=== PATIENT | male | born 1985 ===

== ENCOUNTER 2024-07-10 07:12 | Emergency (ER) | payer MEDICAID, OTHER ==
[~2024-07-10] VITALS: Ht 170.2 cm; Wt 90.9 kg
[2024-07-10 07:29] VITALS: PULSE 128; RESP 22; O2SAT 97
--- NOTE | 2024-07-10 07:39 | ED.PDOC ---
Psychiatric HPI Comments 39M BIBA w/ prior Hx of alcoholism which may be associated to the c/c of ETOH. EMS report that the pt's on scene informed them that the pt has been on a binge drinking for the pat 5 days and only has been drinking beer and Bacardi. Pt states that his last drink before coming to the ER was 30 minutes ago. PMHx of HTN, Anxiety and Stomach Ulcers. SHx of Spine Fusion in the C-6, C-7. Social Hx of quit tobacco use, less than 1 month ago, heavy alcohol use, but denies substance use. Denies chills, fever, N/V/D, SOB, CP or other associated symptom's, modifiers, or recent injuries or sick contact at this time. 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, Medications, Allergies Information Source: Patient, Emergency Med Personnel Mode of Arrival: EMS Severity of Pain: Moderate Severity of Mental Status: None Severity of Symptoms: Moderate Timing: Days Duration: Since onset, Days Prehospital treatment: None Presents with: Anxiety, Alcohol Intoxication Ingestion: ETOH Circumstance: None Current substance abuse: ETOH History of: Anxiety, Alcoholism Location: None Location of pain or injury: None Associated signs and symptoms: Anxiety, Intoxication Past Medical History PAST MEDICAL HISTORY: Anxiety, HTN Past Medical History (Other): Alcoholism and Stomach Ulcers Surgical History (Other): Spine Fusion C-6, C-7 Family History Family History: Reviewed,noncontributory to illness, Unknown Social History Smoker: Quit Less Than 1 Year Alcohol: Heavy Drugs: Denies Drug Use Lives In: Home EENTM: denies: blurred vision, double vision, ear bleeding, ear discharge, ear drainage, ear pain, ear ringing, eye pain, eye redness, hearing loss, mouth pain, mouth swelling, nasal discharge, nose bleeding, nose congestion, nose pain, photophobia, tearing, throat pain, throat swelling, voice changes, others Respiratory: denies: cough, hemoptysis, orthopnea, SOB at rest, shortness of breath, SOB with excertion, stridor, wheezing, others Cardiovascular: denies: chest pain, dizzy spells, diaphoresis, Dyspnea on exertion, edema, irregular heart beat, left arm pain, lightheadedness, palpitations, PND, syncope, others Gastrointestinal: denies: abdomen distended, abdominal pain, blood streaked bowels, constipated, diarrhea, dysphagia, difficulty swallowing, hematemesis, melena, nausea, poor appetite, poor fluid intake, rectal bleeding, rectal pain, vomiting, others Genitourinary: denies: burning, dysuria, flank pain, frequency, hematuria, incontinence, penile discharge, penile sore, pain, testicle pain, testicle s welling, urgency, others Neurological: denies: dizziness, fainting, headache, left sided numbness, left sided weakness, numbness, paresthesia, pre-existing deficit, right sided numbness, right sided weakness, seizure, speech problems, tingling, tremors, weakness, others Musculoskeletal: denies: back pain, gout, joint pain, joint swelling, muscle pain, muscle stiffness, neck pain, others Integumetry: denies: bruises, change in color, change in hair/nails, dryness, laceration, lesions, lumps, rash, wounds, others Allergic/Immunocompromised: denies: Difficulty Healing, Frequent Infections, Hives, Itching, others Hematologic/Lymphatic: denies: anemia, blood clots, easy bleeding, easy bruising, swollen glands, others Endocrine: denies: excessive hunger, excessive sweating, excessive thirst, excessive urination, flushing, intolerance to cold, intolerance to heat, unexplained weight gain, unexplained weight loss, others Psychiatric: reports: others (ETOH); denies: anxiety, bipolar disorder, depression, hopeless, panic disorder, schizophrenia, sleepless, suicidal All Other Systems: Reviewed and Negative Physical Exam General Appearance: Moderate Distress, Obese, Other (Very restless) HEENT: Normal ENT Inspection, PERRL/EOMI, Pharynx Normal, TMs Normal Neck: Full Range of Motion, Non-Tender, Normal, Normal Inspection Respiratory: Chest Non-Tender, Lungs Clear, No Accessory Muscle Use, No Respiratory Distress, Normal Breath Sounds Cardiovascular: No Edema, No JVD, No Murmur, No Gallop, Normal Peripheral Pulses, Regular Rate/Rhythm Breast Exam: Deferred Gastrointestinal: Epigastric, No Organomegaly, No Pulsatile Mass, Normal Bowel Sounds, Soft, Tenderness Genitalia: Deferred Pelvic: Deferred Rectal: Deferred Extremities: No calf tenderness, Normal capillary refill, Normal inspection, Normal range of motion, Non-tender, No pedal edema Musculoskeletal : Apperance: Normal Neurologic: Alert, scout leaser II-XII nml as Tested, Depressed Affect, No Motor Deficits, No Sensory Deficits, Other (Restless) Cerebellar Function: NOT DONE Reflexes: Normal Skin: Dry, Normal Color, Warm Peripheral Pulses: 1+ carotid (R), 1+ carotid (L) Lymphatic: No Adenopathy Was a procedure done? Was a procedure done?: No Psych Differential Dx Psych. Differential Dx: Anxiety OD Differential Dx: Alcohol Abuse, Anxiety, Depression, Drug Overdose, Accidental Suicidal Differential Dx: Alcohol Abuse, Anxiety, Depression, Substance Abuse Intoxication Differential Dx: Alcohol Withdraw Syndrome, Delerium Tremens, Dehydration, Depression, Electrolyte Imbalance, Encephalopathy, Intoxication, Substance Abuse Disorder, Thiamine Deficiency X-Ray, Labs, Meds, VS Vital Signs Date Time Temp Pulse Resp B/P (MAP) Pulse Ox O2 Delivery O2 Flow Rate FiO2 07/10/24 09:30 98.5 125 20 146/83 (104) 96 98.5 07/10/24 07:29 128 22 97 Room Air* 0 21 07/10/24 07:29 99.1 128 22 150/96 (114) 98 99.1 07/10/24 07:20 97.7 10 16 143/83 (103) 97 Lab Test 07/10/24 08:20 07/10/24 07:46 Range/Units Stool for White Cells Pending White Blood Count 8.7 4.4-10.8 10^3/uL Red Blood Count 4.29 L 4.5-5.90 10^6/uL Hemoglobin 8.9 L 13.5-17.5 g/dL Hematocrit 28.6 L 41.0-53.0 % Mean Corpuscular Volume 66.7 L 80.0-100.0 fL Mean Corpuscular Hemoglobin 20.7 L 28.0-32.0 pg Mean Corpuscular Hemoglobin Concent 31.1 L 32.0-36.0 g/dL Red Cell Distribution Width 18.3 H 11.8-14.3 % Platelet Count 319 140-450 10^3/uL Mean Platelet Volume 6.0 L 6.9-10.8 fL Neutrophils (%) (Auto) 77.4 37.0-80.0 % Lymphocytes (%) (Auto) 16.9 10.0-50.0 % Monocytes (%) (Auto) 5.0 0.0-12.0 % Eosinophils (%) (Auto) 0.2 0.0-7.0 % Basophils (%) (Auto) 0.5 0.0-2.0 % Neutrophils # (Auto) 6.8 1.6-8.6 10 ^3/uL Lymphocytes # (Auto) 1.5 0.4-5.4 10 ^3/uL Monocytes # (Auto) 0.4 0-1.3 10 ^3/uL Eosinophils # (Auto) 0 0-0.8 10 ^3/uL Basophils # (Auto) 0 0-0.2 10 ^3/uL Nucleated Red Blood Cells 0.1 % Sodium Level 139 136-145 mmol/L Potassium Level 3.5 3.5-5.1 mmol/L Chloride Level 102 98-107 mmol/L Carbon Dioxide Level 19 L 20-31 mmol/L Anion Gap 18 H 5-15 Blood Urea Nitrogen 6 L 9-23 mg/dL Creatinine 0.93 0.700-1.30 mg/dL Glomerular Filtration Rate Calc 108 >90 mL/min BUN/Creatinine Ratio 6.5 L 10.0-20.0 Serum Glucose 138 H 74-106 mg/dL Calcium Level 10.1 8.7-10.4 mg/dL Magnesium Level 2.0 1.6-2.6 mg/dL Total Bilirubin 0.5 0.2-1.0 mg/dL Aspartate Amino Transferase (AST) 61 H 13-40 U/L Alanine Aminotransferase (ALT) 66 H 7-40 U/L Alkaline Phosphatase 94 46-116 U/L Total Protein 8.0 5.7-8.2 g/dL Albumin 5.1 H 3.2-4.8 g/dL Lipase 50 12-53 U/L Current Medications Medications (Trade) Dose Ordered Sig/Josephine Route Start Time Stop Time Status Last Admin Ondansetron HCl (Zofran) 4 mg ONCE ONCE IV 07/10/24 07:30 07/10/24 07:36 DC 07/10/24 07:46 Sodium Chloride 1,000 ml @ 1,000 mls/hr Q1H ONCE IVB 07/10/24 07:30 07/10/24 08:29 DC 07/10/24 07:46 Al Hydrox/Mg Hydrox/Simethicone (Maalox Plus) 30 ml ONCE ONCE PO 07/10/24 07:30 07/10/24 07:36 DC 07/10/24 07:46 Belladonna Alkaloids/ Phenobarbital ( Elixir) 5 ml ONCE ONCE PO 07/10/24 07:30 07/10/24 07:36 DC 07/10/24 07:46 Lorazepam (Ativan Inj) 2 mg ONCE ONCE IV 07/10/24 07:30 07/10/24 07:36 DC 07/10/24 07:46 Pantoprazole Sodium (Protonix Tablet) 40 mg ONCE ONCE PO 07/10/24 07:30 07/10/24 07:36 DC 07/10/24 07:46 Folic Acid 1 mg/ Magnesium Sulfate 8 meq/ Multivitamins 10 ml/Thiamine HCl 100 mg/Sodium Chloride 1,013.2 ml @ 126.247 mls/hr DAILY@1800 INJ 07/10/24 08:15 07/10/24 09:31 X-Ray, Labs, Meds, VS Comment Course in the emergency department eventful patient came in after a binge of alcohol he drank was Bacardi Chest x-ray is normal EKG pending CBC 8700 with 77% neutrophils H&H 8.9 and 28 with microcytosis CMP normal Lipase 50 Urine pending UDS pending Magnesium 2.0 CO2 19 Blood sugar 138 Patient did understand it was not smart to leave at this time he is under treatment but he adamantly requested to leave AMA Time of 1ST Reevaluation: 08:00 Reevaluation 1ST: Unchanged Time of 2ND Reevaluation: 10:45 Reevaluation 2ND: Improved Consultation: PCP, Psychiatry, Other (You need to go to a detoxification center) Patient Education/Counseling: Diagnosis, Treatment, Prognosis, Need For Follow Up Family Education/Counseling: Diagnosis, Treatment, Prognosis, Need For Follow Up, No Family Present Departure 1 Departure Time of Disposition: 10:46 Impression: Primary Impression: Alcohol abuse Additional Impressions: Alcohol withdrawal syndrome Qualified Codes: F10.939 - Alcohol use, unspecified with withdrawal, unspecified Microcytic anemia Disposition: 07 LEFT AGAINST MEDICAL ADVICE Condition: Fair Additional Instructions: Patient decided to leave AMA did not want to wait any longer though he was being worked up and hydrated and medicated You should not be driving at this time call someone for help Critical Care Note Critical Care Time?: No Stability Stability form required: No Heart Score Heart Score: Heart Score Response (Comments) Value History Slightly Suspicious 0 EKG N/A 0 Age <45 0 Risk Factors 1 or 2 risk factors 1 Troponin N/A 0 Total 1 I personally scribed for REYMUNDO MURPHY MD ([email or web address]) on 07/10/24 at 07:39. Electronically submitted by Chucky Hollis ([email or web address]). REYMUNDO MURPHY MD Jul 10, 2024 07:39
[2024-07-10] MEDS: SODIUM CHLORIDE 0.9% 1,000 ML IVB ONE (07:46)
[2024-07-10] MEDS: DONNATAL 5ml ORAL Elix (BELLADONNA ALK-PHENOBARB) PO ONE (07:46)
[2024-07-10] MEDS: MAALOX PLUS or MAALOX 30 ML PO ONE (07:46)
[2024-07-10] MEDS: ONDANSETRON HCL 4 MG/2 ML VIAL IV ONE (07:46)
[2024-07-10] MEDS: LORazepam 2MG/ML-1ML VIAL IV ONE (07:46)
[2024-07-10] MEDS: PANTOPRAZOLE 40 MG TAB PO ONE (07:46)
--- NOTE | 2024-07-10 08:18 | DVH ---
CHEST RADIOGRAPH Indication: epigastric pain etoh Technique: Frontal and lateral view of the chest was obtained Comparison: None FINDINGS: Lines and Tubes: None Lungs: Clear Pleura: No effusion. No pneumothorax. Cardiomediastinal contours: Unremarkable Bones: Unremarkable IMPRESSION: No evidence of acute disease.
[2024-07-10 08:21] LABS: Basophils # (auto) 0 10 ^3/uL (0-0.2); Eosinophils # (auto) 0 10 ^3/uL (0-0.8); Hemoglobin 8.9 g/dL (13.5-17.5); Lymphocytes # (auto) 1.5 10 ^3/uL (0.4-5.4); Nucleated Red Blood Cells % 0.1 %
[2024-07-10 08:23] LABS: Basophils % (auto) 0.5 % (0.0-2.0); Eosinophils % (auto) 0.2 % (0.0-7.0); Hematocrit 28.6 % (41.0-53.0); Lymphocytes % (auto) 16.9 % (10.0-50.0); Mean Corpuscular Hemoglobin 20.7 pg (28.0-32.0); Mean Corpuscular Hgb Conc. 31.1 g/dL (32.0-36.0); Mean Corpuscular Volume 66.7 fL (80.0-100.0); Monocytes # (auto) 0.4 10 ^3/uL (0-1.3); Neutrophils # (auto) 6.8 10 ^3/uL (1.6-8.6); Neutrophils % (auto) 77.4 % (37.0-80.0); Platelet Count (auto) 319 10^3/uL (140-450); Red Blood Cells 4.29 10^6/uL (4.5-5.90); Red Cell Distribution Width 18.3 % (11.8-14.3); White Blood Cell 8.7 10^3/uL (4.4-10.8)
[2024-07-10 08:41] LABS: Alkaline Phosphatase 94 U/L (46-116); Anion Gap 18 (5-15); BUN/Creatinine Ratio 6.5 (10.0-20.0); Calcium 10.1 mg/dL (8.7-10.4); Chloride 102 mmol/L (98-107); Sodium 139 mmol/L (136-145)
[2024-07-10 08:42] LABS: Bilirubin, Total 0.5 mg/dL (0.2-1.0)
[2024-07-10 08:44] LABS: Potassium 3.5 mmol/L (3.5-5.1)
[2024-07-10 08:45] LABS: Alanine Aminotransferase 66 U/L (7-40); Albumin 5.1 g/dL (3.2-4.8); Aspartate Aminotransferase 61 U/L (13-40); Blood Urea Nitrogen 6 mg/dL (9-23); Carbon Dioxide 19 mmol/L (20-31); Glucose 138 mg/dL (74-106)
[2024-07-10 09:17] LABS: Lipase 50 U/L (12-53)
[2024-07-10 09:30] VITALS: BP 146/83; PULSE 125; RESP 20; TEMP 98.5; O2SAT 96
[2024-07-10] MEDS: FOLIC ACID 1 MG, MAGNESIUM SULF SDV 50% 8 MEQ, MULTIPLE VITAMIN 10 ML, THIAMINE INJ 100... INJ SCH (09:31)
[2024-07-10 10:49] LABS: Urine Bacteria None Seen /hpf (None Seen)
[2024-07-10 11:19] LABS: Urine Blood TRACE /uL (Negative); Urine Clarity Clear (Clear); Urine Protein, UAD Negative (Negative); Urine Specific Gravity 1.005 (1.001-1.035); Urine Squamous Epithelial Cell None Seen /hpf (<5); Urine Urobilinogen Normal (Negative); Urine WBC < 1 /HPF (0-3)
[2024-07-10 11:24] LABS: Urine Color Straw (Yellow)
[2024-07-10 11:30] LABS: Barbiturate Scree,Urine Neg (NEGATIVE); Cannabinoid Screen, Urine Neg (NEGATIVE)
[2024-07-10 11:32] LABS: Amphetamine Screen, Urine Neg (NEGATIVE); Benzodiazephine Screen, Urine Neg (NEGATIVE); Cocaine Screen, Urine Neg (NEGATIVE); Opiate Scree,Urine Neg (NEGATIVE); Phencyclidine Screen, Urine Neg (NEGATIVE)
[2024-07-10] MEDS ORDERED: FOLIC ACID 1 MG, MAGNESIUM SULF SDV 50% 8 MEQ, MULTIPLE VITAMIN 10 ML, THIAMINE INJ 100... INJ SCH (18:00)
== END 2024-07-10 10:45 | disposition left against medical advice (07) ==
LOC: EDBD 07:12 → ER 07:12
DX: F10.139 Alcohol abuse with withdrawal, unspecified (principal); D50.9 Iron deficiency anemia, unspecified; I10 Essential (primary) hypertension; F41.9 Anxiety disorder, unspecified; Z98.890 Other specified postprocedural states; Y90.9 Presence of alcohol in blood, level not specified
CPT/HCPCS: 36415; 71046; 80053; 80307; 81001; 83690; 83735; 85025; 85048; 87045; 87427; 87493; 96361; 96365; 96375; 99284; J2060; J2405; J3411; J3475; J7030